=== PATIENT | male | born 1980 | race Caucasian/White ===

== ENCOUNTER 2017-09-03 18:54 | Inpatient (IN) ==
[2017-09-03] MEDS ORDERED: SODIUM CHLORIDE 0.9% 1,000 ML IV STA ×3 (20:07→21:38)
[2017-09-03] MEDS ORDERED: ONDANSETRON 4 MG/2 ML VIAL IV STA (20:07)
[2017-09-03] MEDS ORDERED: ONDANSETRON 4 MG/2 ML VIAL ONE (20:11)
[2017-09-03 20:20] LABS: Basophils # 0.1 10*3/uL (0.0-0.2); Basophils % 0.5 % (0.0-0.8); Eosinophils # 0.1 10*3/uL (0.0-0.87); Eosinophils % 0.4 % (0.00-10.9); Hematocrit 42.9 VOL% (42.0-52.0); Hemoglobin 15.4 GM/DL (14.0-18.0); Immature Granulocytes % 0.6 %; Immature Granulocytes Absolute 0.07 #; Lymphocytes # 2.2 10*3/uL (1.4-4.0); Lymphocytes % 17.9 % (21.2-54.2); Mean Corpuscular HGB Conc 35.9 GM/DL (32-36); Mean Corpuscular Hemoglobin 32 PG (27-34); Mean Corpuscular Volume 88.5 FL (87-102); Mean Platelet Volume 11.8 FL (9.6-12.0); Monocytes % 8.1 % (1.7-12.7); Neutrophils % 72.5 % (38.7-73.9); Platelet Count 253 T/CUMM (130-400); Red Blood Count 4.85 MC/CUMM (3.8-5.5); Red Cell Distribution Width 12.1 % (9.3-17.3); White Blood Count 12.5 T/CUMM (4-12)
[2017-09-03 21:25] LABS: Albumin 4.1 G/DL (3.4-5.0); Bilirubin,Total 0.8 MG/DL (0.2-1.0); Calcium 8.9 MG/DL (8.5-10.1); Osmolality,Calculated 276.9 MOS/KG (273-304); Potassium 3.9 MMOL/L (3.5-5.1); Total Protein 7.9 G/DL (6.4-8.3)
[2017-09-03] MEDS ORDERED: INSULIN REGULAR 100 UNIT/ML SUBCUT STA (21:37)
[2017-09-03] MEDS ORDERED: INSULIN NPH/REGULAR 70/30 100 UNIT/ML SUBCUT ONE (21:43)
[2017-09-04] MEDS ORDERED: ONDANSETRON 4 MG/2 ML VIAL IV PRN (00:15)
[2017-09-04] MEDS ORDERED: DEXTROSE 50% 25 GM/50 ML VIAL IV PRN (00:15)
[2017-09-04] MEDS ORDERED: ACETAMINOPHEN 325 MG TABLET PO PRN (00:15)
[2017-09-04] MEDS ORDERED: GLUCAGON 1 MG VIAL IM PRN (00:15)
[2017-09-04] MEDS ORDERED: SODIUM CHLOR 0.9% KCL 20 MEQ 20 MEQ/1,000 ML BAG IV SCH (00:30)
[2017-09-04] MEDS ORDERED: INSULIN LISPRO 100 UNIT/ML SUBCUT STA (00:35)
[2017-09-04 01:58] LABS: Calcium 7.7 MG/DL (8.5-10.1); Osmolality,Calculated 276.8 MOS/KG (273-304); Potassium 3.2 MMOL/L (3.5-5.1)
[2017-09-04 01:59] LABS: Albumin 3.2 G/DL (3.4-5.0); Calcium 7.7 MG/DL (8.5-10.1); Osmolality,Calculated 273.1 MOS/KG (273-304)
[2017-09-04] MEDS: SODIUM CHLOR 0.45% KCL 20 MEQ 20 MEQ/1,000 ML BAG IV SCH ×5 (02:34→18:12)
[2017-09-04] MEDS: INSULIN LISPRO 100 UNIT/ML SUBCUT SCH ×9 (03:01→22:57)
[2017-09-04] MEDS ORDERED: POLYETHYLENE GLYCOL POWDER 17 GM PACK PO PRN (03:44)
[2017-09-04 05:31] LABS: Basophils # 0.1 10*3/uL (0.0-0.2); Basophils % 0.7 % (0.0-0.8); Eosinophils # 0.2 10*3/uL (0.0-0.87); Hematocrit 36.3 VOL% (42.0-52.0); Immature Granulocytes % 0.6 %; Immature Granulocytes Absolute 0.06 #; Lymphocytes # 3.3 10*3/uL (1.4-4.0); Mean Corpuscular HGB Conc 35.8 GM/DL (32-36); Mean Corpuscular Hemoglobin 32 PG (27-34); Mean Corpuscular Volume 87.9 FL (87-102); Monocytes % 9.9 % (1.7-12.7); Neutrophils # 5.7 10*3/uL (1.4-7.4); Neutrophils % 54.8 % (38.7-73.9); Platelet Count 213 T/CUMM (130-400); Red Blood Count 4.13 MC/CUMM (3.8-5.5); Red Cell Distribution Width 12.4 % (9.3-17.3); White Blood Count 10.4 T/CUMM (4-12)
[2017-09-04 06:48] LABS: Apearance,Urine CLEAR (Clear); Bilirubin,Urine Negative (Negative); Blood, Urine Moderate mg/dL (Negative); Glucose,Urine (UA) >=500 mg/dL (Negative); Ketones,Urine 80 mg/dL (Negative); Mucus,Urine Occasional /LPF (Occasional); Nitrite,Urine Negative (Negative); Protein,Urine 100 MG/DL; Squamous Epithelial Cell,Urine Occasional /HPF (0-10); Urine Color Yellow (Yellow); Urine Specific Gravity 1.031 (1.001-1.035); Urine Urobilinogen < 2.0 EU/DL (0.2-1.0); WBC,Urine <1 /HPF (0-6)
[2017-09-04 07:22] LABS: Calcium 7.8 MG/DL (8.5-10.1); Osmolality,Calculated 271.8 MOS/KG (273-304); Potassium 3.2 MMOL/L (3.5-5.1)
[2017-09-04] MEDS ORDERED: POTASSIUM PHOS/SOD PHOS 250 MG TABLET PO SCH (08:00)
[2017-09-04] MEDS: POLYETHYLENE GLYCOL POWDER 17 GM PACK PO SCH (08:52)
[2017-09-04] MEDS: PANTOPRAZOLE 40 MG TABLET PO SCH (08:55)
[2017-09-04] MEDS: metFORMIN 500 MG TABLET PO SCH ×2 (08:55→16:42)
[2017-09-04] MEDS: POTASSIUM PHOS/SOD PHOS 250 MG TABLET PO SCH ×4 (08:56→20:41)
[2017-09-04] MEDS: POTASSIUM CHLORIDE 20 MEQ TABLET PO SCH (08:56)
[2017-09-04] MEDS: ENOXAPARIN 40 MG/0.4 ML SYRINGE SUBCUT SCH (08:58)
[2017-09-05] MEDS: SODIUM CHLOR 0.45% KCL 20 MEQ 20 MEQ/1,000 ML BAG IV SCH ×2 (01:00→09:48)
[2017-09-05] MEDS: INSULIN LISPRO 100 UNIT/ML SUBCUT SCH ×2 (03:19→07:11)
[2017-09-05 05:28] LABS: Basophils % 0.3 % (0.0-0.8); Eosinophils # 0.1 10*3/uL (0.0-0.87); Eosinophils % 2.2 % (0.00-10.9); Hematocrit 34.5 VOL% (42.0-52.0); Hemoglobin 12.5 GM/DL (14.0-18.0); Immature Granulocytes % 0.5 %; Immature Granulocytes Absolute 0.03 #; Lymphocytes # 2.1 10*3/uL (1.4-4.0); Lymphocytes % 36.3 % (21.2-54.2); Mean Corpuscular HGB Conc 36.2 GM/DL (32-36); Mean Corpuscular Hemoglobin 32 PG (27-34); Mean Corpuscular Volume 87.8 FL (87-102); Monocytes # 0.5 10*3/uL (0.11-0.8); Monocytes % 8.2 % (1.7-12.7); Neutrophils # 3.1 10*3/uL (1.4-7.4); Neutrophils % 52.5 % (38.7-73.9); Platelet Count 151 T/CUMM (130-400); Red Blood Count 3.93 MC/CUMM (3.8-5.5); Red Cell Distribution Width 12.4 % (9.3-17.3); White Blood Count 5.8 T/CUMM (4-12)
[2017-09-05 05:58] LABS: Calcium 7.1 MG/DL (8.5-10.1); Osmolality,Calculated 274.1 MOS/KG (273-304); Potassium 3.6 MMOL/L (3.5-5.1)
[2017-09-05 06:02] LABS: Risk Ratio 7.7; VLDL CHOLESTEROL 111.8 MG/DL
[2017-09-05 07:19] VITALS: BP 98/53
[2017-09-05] MEDS ORDERED: metFORMIN 500 MG TABLET PO SCH (08:17)
[2017-09-05] MEDS: PANTOPRAZOLE 40 MG TABLET PO SCH (09:06)
[2017-09-05] MEDS: POTASSIUM PHOS/SOD PHOS 250 MG TABLET PO SCH (09:06)
[2017-09-05] MEDS: ENOXAPARIN 40 MG/0.4 ML SYRINGE SUBCUT SCH (09:06)
[2017-09-05] MEDS: POLYETHYLENE GLYCOL POWDER 17 GM PACK PO SCH (09:06)
[2017-09-05] MEDS: POTASSIUM CHLORIDE 20 MEQ TABLET PO SCH (09:06)
[2017-09-05] MEDS: metFORMIN 500 MG TABLET PO SCH (09:08)
== END 2017-09-05 10:54 | disposition home or self-care (01) | DRG 638 ==
LOC: N.ED 18:54 → N.EDINP 09-04 00:15 → N.5E 09-04 01:13